=== PATIENT | female | born 1970 | race Caucasian/White ===

== ENCOUNTER 2017-04-20 15:03 | Emergency (ER) | payer OTHER ==
[~2017-04-20] VITALS: Ht 162.6 cm; Wt 60.3 kg
[2017-04-20 15:06] VITALS: BP 121/75; PULSE 74; RESP 18; TEMP 97.6; O2SAT 100
[2017-04-20] MEDS ORDERED: LEVO.075 PO (15:15)
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
[2017-04-20] MEDS ORDERED: ROBA500T PO (17:26)
[2017-04-20] MEDS ORDERED: IBUP800T23 PO (17:26)
[2017-04-20] MEDS ORDERED: KETOROLAC TROMETHAMINE 60 MG/2 ML (IM) VIAL IM ONE (17:30)
== END 2017-04-20 17:39 | disposition home or self-care (01) ==
LOC: PHEFT 15:03
DX: S16.1XXA Strain of muscle, fascia and tendon at neck level, initial encounter (principal); S02.5XXA Fracture of tooth (traumatic), initial encounter for closed fracture; W20.8XXA Other cause of strike by thrown, projected or falling object, initial encounter; Y93.18 Activity, surfing, windsurfing and boogie boarding
CPT/HCPCS: 72125; 96372; 99285; J1885